=== PATIENT | male | born 1990 | race American Indian/Alaskan Native ===

== ENCOUNTER 2017-04-03 04:22 | Emergency (ER) | payer OTHER ==
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
[2017-04-03] MEDS ORDERED: TYLENOL ONE (07:13)
[2017-04-03] MEDS ORDERED: TYLENOL PO ONE (07:25)
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
[2017-04-03 08:39] VITALS: BP 169/89
== END 2017-04-03 08:39 | disposition home or self-care (01) ==
LOC: ED 04:22
DX: S00.11XA Contusion of right eyelid and periocular area, initial encounter (principal); I10 Essential (primary) hypertension; Y09 Assault by unspecified means; Y93.89 Activity, other specified; Y92.89 Other specified places as the place of occurrence of the external cause; Y99.8 Other external cause status
CPT/HCPCS: 70450; 70486; 99283